=== PATIENT | female | born 1970 | race African-American/Black ===

== ENCOUNTER → 2017-04-12 | Outpatient (CLI) | payer OTHER ==
[2015-11-10 14:59] VITALS: BP 146/91
[~2017-04-12] MED LIST: AMOX1TAB11 PO; FERR300L PO; LEVE500T56 PO; LISI10TA2 PO
--- NOTE | 2017-04-12 16:14 | KCIC ---
PROCEDURE MRI of the cervical spine without contrast 04/12/2017 HISTORY Neck pain and right arm pain and numbness for 2 months. TECHNIQUE Unenhanced T1 weighted, T2 weighted and inversion recovery sagittal and gradient echo and T2 weighted axial images of the cervical spine were obtained. FINDINGS Mild lateral curvature of the cervical spine is seen convex to the right. There is straightening of the normal cervical lordosis. Degenerative signal changes are seen involving all of the discs of the cervical spine. Degenerative signal changes are seen within the marrow surrounding these discs. No area of abnormal signal intensity is seen involving the cervical spinal cord. At the C2-3 disc space there is mild generalized disc bulge. Degenerative changes are seen involving the uncovertebral and facet joints bilaterally. These findings do not result in significant central spinal canal or neural foraminal stenosis. At the C3-4 disc space there is mild to moderate generalized disc bulge. Degenerative changes are seen involving uncovertebral and facet joints bilaterally. These findings efface the anterior CSF resulting in mild central spinal canal stenosis without cord impingement. No neural foraminal stenosis is seen. At the C4-5 disc space there is a mild to moderate generalized disc bulge. This is eccentric to the right. Superimposed on the disc bulge is a central/right paracentral disc osteophyte complex. This measures 3 millimeters in AP diameter. Degenerative changes are seen involving the uncovertebral and facet joints bilaterally. These findings efface the anterior CSF resulting in mild right greater than left central spinal canal stenosis without significant cord impingement. No neural foraminal stenosis is seen. At the C5-6 disc space there is a mild to moderate generalized disc bulge. Superimposed on the disc bulge is a left paracentral disc osteophyte complex. This measures 3 millimeters in AP diameter. Degenerative changes are seen involving the uncovertebral and facet joints bilaterally. These findings when combined result in mild left greater than right central spinal canal stenosis without significant cord impingement. Mild bilateral neural foraminal stenosis is seen. At the C6-7 disc space there is a mild generalized disc bulge. Superimposed on this disc bulge is a focal central disc protrusion. This measures 2 millimeters in AP diameter. Degenerative changes are seen involving the uncovertebral and facet joints bilaterally. These findings do not result in significant central spinal canal or neural foraminal stenosis. At the C7-T1 disc space there is a minimal generalized disc bulge. Degenerative changes are seen involving the facet joints bilaterally. These findings do not result in significant central spinal canal or neural foraminal stenosis. IMPRESSION Degenerative changes are seen throughout the cervical spine. These findings result in mild central spinal canal stenosis at C3-4, mild right greater than left central spinal canal stenosis at C4-5 and mild left greater than right central spinal canal stenosis at C5-6. Mild bilateral neural foraminal stenosis is seen at C5-6. Electronically signed by: Jacob Jasso MD (April 12, 2017 16:13:38)
== END | disposition home or self-care (01) ==
LOC: KCIC MRI 10:55
PROVIDERS: ATTEND Family Medicine
DX: M79.601 Pain in right arm (principal); M54.12 Radiculopathy, cervical region; M47.892 Other spondylosis, cervical region; M48.02 Spinal stenosis, cervical region
CPT/HCPCS: 72141